=== PATIENT | female | born 1950 | race Caucasian/White ===

== ENCOUNTER → 2025-01-25 | Outpatient (CLI) | payer MEDICARE, SELFPAY ==
--- NOTE | 2025-01-25 11:02 | MRI_ITS ---
PROCEDURE: SPINE LUMBAR (ROUTINE) 01/25/2025 REASON FOR EXAM: PAIN, DDD, SPONDY TECHNIQUE: SPINE LUMBAR (ROUTINE) FINDINGS: Normal lumbar vertebral body height. Degenerative grade 1 subluxation of L4 upon L5. Slight degenerative retrolisthesis of L5 upon S1. Modic type 1 changes at T11-12. Normal conus. No retroperitoneal abnormality. L1-L2 is within normal limits. At L2-3, disc dehydration and disc bulging results in a mild degree of canal narrowing. There is mild canal narrowing at L3-4 without foraminal nerve root impingement. This is secondary to mild annular bulging. At L4-5 there is moderate spinal stenosis secondary to prominent facet degeneration and ligamentous hypertrophy. This results in mild foraminal narrowing on both sides. At L5-S1 disc space narrowing and retrolisthesis with mild spinal stenosis. Moderate bilateral foraminal narrowing from bulging disc. MRI/Spine Lumbar (Routine) IMPRESSION: 1. Degenerative subluxation at L4-5 and L5-S1. 2. Mild canal narrowing at L2-3 and L3-4. 3. Moderate spinal stenosis at L4-5. Bilateral foraminal narrowing at L4-5 and L5-S1 [facility]
== END | disposition home or self-care (01) ==
LOC: MRI 11:00
PROVIDERS: PCP Internal Medicine; Referring Provider Student in an Organized Health Care Education/Training Program; Visit Provider Student in an Organized Health Care Education/Training Program
DX: M51.360 Other intervertebral disc degeneration, lumbar region with discogenic back pain only (principal); M43.16 Spondylolisthesis, lumbar region
CPT/HCPCS: 72148

== ENCOUNTER → 2025-05-01 | Outpatient (CLI) | payer MEDICARE, SELFPAY ==
--- NOTE | 2025-05-01 11:00 | EKG12_ITS ---
Test Reason : PREOP Blood Pressure : */* mmHG Vent. Rate : 94 BPM Atrial Rate : 69 BPM P-R Int : 206 ms QRS Dur : 86 ms QT Int : 372 ms P-R-T Axes : 39 -30 54 degrees QTcB Int : 465 ms Sinus rhythm with frequent Premature ventricular complexes Left axis deviation Low voltage QRS Abnormal ECG Confirmed by Jonatan Sue [id number]), news video editor AMANDA TRUJILLO ([id number]) on 05/01/2025 12:48:49 PM Referred By: Chavez Bauer Confirmed By: Jonatan Sue
--- NOTE | 2025-05-01 11:00 | EKG12_ITS ---
Test Reason : PREOP Blood Pressure : */* mmHG Vent. Rate : 94 BPM Atrial Rate : 69 BPM P-R Int : 206 ms QRS Dur : 86 ms QT Int : 372 ms P-R-T Axes : 39 -30 54 degrees QTcB Int : 465 ms Sinus rhythm with frequent Premature ventricular complexes Left axis deviation Low voltage QRS Abnormal ECG Confirmed by Jonatan Sue ([id number]), assignment desk editor AMANDA TRUJILLO ([id number]) on 05/01/2025 12:48:49 PM Referred By: Chavez Bauer Confirmed By: Jonatan Sue
== END | disposition home or self-care (01) ==
PROVIDERS: PCP Internal Medicine; Referring Provider Student in an Organized Health Care Education/Training Program; Visit Provider Student in an Organized Health Care Education/Training Program
DX: Z01.818 Encounter for other preprocedural examination (principal)
CPT/HCPCS: 93005

== ENCOUNTER → 2025-05-03 | Outpatient (CLI) | payer MEDICARE, SELFPAY ==
[2025-05-03 12:12] LABS: Hematocrit 41.7 % (37-47); Hemoglobin 15.0 g/dL (12.0-15.0); Immature Granulocytes Count 0.020 X10^3/uL (0.0-0.0); Mean Corp Hgb Conc 36.0 g/dL (32-36); Mean Corpuscular Volume 92.1 fL (81-99); Mean Platelet Vol. 11.2 fl (6.2-12.0); NRBC Flagged by Analyzer 0 % (0-5); Platelet Count 251 K/mm3 (150-450); RBC Distribution Width CV 13.5 % (11.6-14.6); RBC Distribution Width SD 45.9 fl (35.1-43.9); Red Blood Count 4.53 M/mm3 (4.2-5.4); White Blood Count 7.5 K/mm3 (4.4-11.0)
[2025-05-03 12:51] LABS: Anion Gap 8 (5-15); BUN 19 mg/dL (4-19); BUN/Creat Ratio 26.5 RATIO (10-20); Calcium,Total 9.5 mg/dL (7.6-11.0); Carbon Dioxide 26.5 mmol/L (21.0-32.0); Chloride 103 mmol/L (98-108); Glucose 96 mg/dL (70-99); Potassium 4.7 mmol/L (3.3-5.1)
== END | disposition home or self-care (01) ==
LOC: LAB 11:35
PROVIDERS: PCP Internal Medicine; Referring Provider Student in an Organized Health Care Education/Training Program; Visit Provider Student in an Organized Health Care Education/Training Program
DX: Z01.818 Encounter for other preprocedural examination (principal)
CPT/HCPCS: 36415; 80048; 85025